=== PATIENT | male | born 1965 | race Two or more races ===

== ENCOUNTER 2021-02-18 08:08 | Outpatient (CLI) | payer OTHER | END 2021-02-18 17:08 | disposition home or self-care (01) | LOC: PPH VACUNA 08:08 | PROVIDERS: ATTEND Emergency Medicine Pediatric Emergency Medicine | DX: Z23 Encounter for immunization (principal) ==

== ENCOUNTER 2024-05-01 16:54 | Emergency (ER) | payer OTHER ==
[~2024-05-01] VITALS: Ht 188 cm; Wt 128.8 kg
[2024-05-01] MEDS ORDERED: JANTOVEN1 MG PO (17:07)
[2024-05-01] MEDS ORDERED: BETAPACE80 MG PO (17:07)
[2024-05-01] MEDS ORDERED: MILLIPRED5 MG PO (17:07)
[2024-05-01] MEDS ORDERED: AVAPRO300 MG PO (17:08)
[2024-05-01] MEDS ORDERED: BUSPAR (17:08)
[2024-05-01] MEDS ORDERED: SYNTHROID50 MCG PO (17:08)
[2024-05-01] MEDS ORDERED: TOPROL XL50 M1 PO (17:08)
[2024-05-01] MEDS ORDERED: HYDRODIURIL12.5 MG PO (17:08)
[2024-05-01] MEDS ORDERED: OZEMPIC1 MG/0.71 SQ (17:09)
[2024-05-01] MEDS ORDERED: KETOROLAC TROMETHAMINE 60 MG VIAL IM ONE (17:30)
[2024-05-01 17:41] LABS: HEMATOCRIT 43.6 % (39.0-48.0); HEMOGLOBIN 14.9 g/dL (13-16.00); MEAN CELL VOLUME 83.1 fL (80.0-100.00); MEAN CORPUSCULAR HEMOGLOBIN 28.3 pg (27.00-32.0); MEAN CORPUSCULAR HGB CONC 34.1 g/dl (32.0-36.0); PLATELET COUNT 207 K/uL (150-450); RED BLOOD COUNT 5.25 M/uL (4.00-6.00); RED CELL DISTRIBUTION WIDTH 15.7 % (11.5-14.5)
[2024-05-01 17:58] LABS: PH,URINE 5.5 (5.0-8.0); URINE APPEARANCE Clear; URINE BILIRRUBIN Negative (NEGATIVE); URINE BLOOD Large; URINE COLOR Dark Yellow; URINE GLUCOSE Negative (NEGATIVE); URINE KETONE Negative (NEGATIVE); URINE LEUKOCYTE Moderate; URINE NITRATE Negative; URINE PROTEIN Trace (NEGATIVE); URINE UROBILINOGEN 0.2 E.U./dl
[2024-05-01] MEDS ORDERED: 0.9 % SODIUM CHLORIDE 1,000 ML IV SCH (18:00)
[2024-05-01 18:02] LABS: URINE BACTERIA 423.4 uL (0.0-1933); URINE EPITHELIAL CELLS 18.8 uL (0.0-38.8); URINE RBC 988.9 uL (0.0-20.8); URINE WBC 78.3 uL (0.0-23.2)
[2024-05-01] MEDS ORDERED: TAMSULOSIN HCL 0.4 MG CAP PO ONE (18:15)
[2024-05-01 19:03] LABS: URINE CAST 1.17 uL (0.0-1.40)
[2024-05-01 19:49] LABS: CALCIUM 9.1 mg/dL (8.5-10.1); CREATININE SERUM 0.79 mg/dL (0.70-1.30); GFR 100.74; POTASSIUM 3.33 mEq/L (3.5-5.1)
== END 2024-05-01 21:31 | disposition home or self-care (01) ==
LOC: ER 16:54
PROVIDERS: Emergency Medicine
DX: R10.9 Unspecified abdominal pain (principal); I48.91 Unspecified atrial fibrillation; N20.1 Calculus of ureter; N20.0 Calculus of kidney

== ENCOUNTER 2025-01-13 11:34 | Outpatient (CLI) | payer OTHER ==
[~2025-01-13 11:34] MED LIST: AVAPRO300 MG PO; BETAPACE80 MG PO; BUSPAR; HYDRODIURIL12.5 MG PO; JANTOVEN1 MG PO; MILLIPRED5 MG PO; OZEMPIC1 MG/0.71 SQ; SYNTHROID50 MCG PO; TOPROL XL50 M1 PO
[2025-01-13 12:36] LABS: COVID-19 AG NEGATIVE (NEGATIVE)
== END 2025-01-13 12:03 | disposition home or self-care (01) ==
LOC: LAB 11:34
DX: U07.1 COVID-19 (principal); Z20.822 Contact with and (suspected) exposure to COVID-19